=== PATIENT | female | born 1980 | race Two or more races ===

== ENCOUNTER 2023-12-09 19:25 | Emergency (ER) | payer MEDICAID ==
[~2023-12-09] VITALS: Ht 167.6 cm; Wt 86.2 kg
[2023-12-09 20:13] LABS: BASOPHILS # (AUTO) 0.1 K/UL (0.0-0.2); BASOPHILS % (AUTO) 0.9 % (0.0-2.0); EOSINOPHILS # (AUTO) 0.2 K/uL (0.0-0.7); HEMATOCRIT 26.4 % (31.2-41.9); HEMOGLOBIN 8.7 g/dL (10.9-14.3); LYMPHOCYTES # (AUTO) 2.3 K/uL (0.8-4.8); LYMPHOCYTES % (AUTO) 27.4 % (20.5-51.5); MEAN CORPUSCULAR HGB CONC 33 g/dL (32.3-35.6); MEAN CORPUSCULAR VOLUME 82.4 fL (75.5-95.3); MONOCYTES # (AUTO) 0.7 K/uL (0.1-1.30); MONOCYTES % (AUTO) 8.2 % (0.0-11.0); NEUTROPHILS # (AUTO) 5.3 K/uL (1.8-8.9); NEUTROPHILS % (AUTO) 61.5 % (38.5-71.5); PLATELET COUNT (AUTO) 331 K/uL (179-408); RED BLOOD CELL COUNT(AUTO) 3.21 MIL/uL (3.63-4.92); RED CELL DISTRIBUTION WIDTH 14.3 % (12.3-17.7); WHITE BLOOD COUNT (AUTO) 8.5 K/uL (3.8-11.8)
[2023-12-09 20:16] LABS: DIFFERENTIAL COMMENT 1
[2023-12-09 20:23] LABS: CALCIUM 8.2 mg/dL (8.5-10.1); CARBON DIOXIDE 25 mmol/L (21-32); CHLORIDE 109 mmol/L (98-107); CREATININE 0.9 mg/dL (0.6-1.3); GLUCOSE 145 mg/dL (74-106); POTASSIUM 3.9 mmol/L (3.5-5.1); SODIUM SERUM 141 mmol/L (136-145); UREA NITROGEN, BLOOD 12 mg/dL (7-18)
[2023-12-09 20:29] LABS: *BILIRUBIN,URIN NEGATIVE (NEGATIVE); *CLARITY,URINE CLEAR (CLEAR); *COLOR,URINE YELLOW (YELLOW); *KETONES,URINE NEGATIVE (NEGATIVE); *PROTEIN,URINE NEGATIVE (NEGATIVE); *UROBILINOGEN,URINE 0.2 E.U./dl (NORMAL); LEUKOCYTE ESTERASE ,URINE NEGATIVE (NEGATIVE); NITRITE, URINE NEGATIVE (NEGATIVE); UGLUCOSE NEGATIVE (NEGATIVE)
[2023-12-09 20:32] LABS: ALANINE AMINOTRANSFERASE 16 U/L (14-59); ALBUMIN 3.5 g/dL (3.4-5.0); ALKALINE PHOSPHATASE 127 U/L (50-136); ASPARTATE AMINOTRANSFERASE 8 U/L (15-37); BILIRUBIN,DIRECT 0.1 mg/dL (0.0-0.2); BILIRUBIN,TOTAL 0.2 mg/dL (0.2-1.0); TOTAL PROTEIN, SERUM 6.9 g/dL (6.4-8.2)
[2023-12-09 20:34] LABS: *BLOOD, URINE NEGATIVE (NEGATIVE); *URINE HCG, QUAL NEGATIVE (NEGATIVE)
[2023-12-09] MEDS ORDERED: KETOROLAC TROMETHAMINE 15 MG INJ ONE (21:08)
[2023-12-09] MEDS ORDERED: SWABABLE VALVE TRANSFER SET EA MC ONE (21:08)
[2023-12-09] MEDS ORDERED: IV NORMAL SALINE 250 ML IV ONE (21:08)
[2023-12-09] MEDS ORDERED: IOHEXOL 350 100 ML INFUS..BTL ONE (21:08)
[2023-12-09] MEDS: KETOROLAC TROMETHAMINE 15 MG INJ IVP ONE (21:11)
[2023-12-09] MEDS ORDERED: FERR-68 PO (22:02)
[2023-12-09 22:26] VITALS: BP 116/76; TEMP 98.3; O2SAT 96
== END 2023-12-09 22:27 | disposition home or self-care (01) ==
LOC: ER 19:27
DX: R07.89 Other chest pain (principal); D64.9 Anemia, unspecified; E78.00 Pure hypercholesterolemia, unspecified; J45.909 Unspecified asthma, uncomplicated; R10.2 Pelvic and perineal pain; Z98.890 Other specified postprocedural states
CPT/HCPCS: 99285; 96374; 71275; 71045; 80076; 80048; 81003; 84703; 85025; 85379; 85730; 84484; 36415; 93005; J1885; Q9967; A4606; A4663